=== PATIENT | male | born 1985 | race Caucasian/White ===

== ENCOUNTER 2017-10-18 09:25 | Emergency (ER) | payer OTHER ==
[~2017-10-18] VITALS: Ht 182.9 cm; Wt 104.3 kg
[~2017-10-18 09:25] MED LIST: ALPRAZOLAM ER1 MG; BACTRIM DS TAB1 EACH PO; NORCO 5-325 TA1 EACH PO; VYVANSE70 MG
[2017-10-18] MEDS ORDERED: AMOXICILLIN 50500 MG PO (09:50)
[2017-10-18] MEDS ORDERED: IBUPROFEN 600600 M1 PO (09:50)
[2017-10-18 09:57] VITALS: BP 127/89
[2017-10-19] MEDS ORDERED: ULTRAM 50MG TAB50 MG PO (03:20)
== END 2017-10-18 09:59 | disposition home or self-care (01) ==
LOC: ER 09:25
DX: K08.89 Other specified disorders of teeth and supporting structures (principal); Z90.49 Acquired absence of other specified parts of digestive tract; F17.210 Nicotine dependence, cigarettes, uncomplicated; Z88.1 Allergy status to other antibiotic agents

== ENCOUNTER 2017-10-19 02:53 | Emergency (ER) | payer OTHER ==
[~2017-10-19] VITALS: Ht 182.9 cm; Wt 104.3 kg
[~2017-10-19 02:53] MED LIST changes: +AMOXICILLIN 50500 MG PO; +IBUPROFEN 600600 M1 PO
[2017-10-19 02:59] VITALS: BP 154/104
[2017-10-19] MEDS ORDERED: ULTRAM 50MG TAB50 MG PO (03:20)
== END 2017-10-19 03:33 | disposition home or self-care (01) ==
LOC: ER 02:53
DX: K08.89 Other specified disorders of teeth and supporting structures (principal); F17.210 Nicotine dependence, cigarettes, uncomplicated; Z88.1 Allergy status to other antibiotic agents; Z90.49 Acquired absence of other specified parts of digestive tract

== ENCOUNTER 2017-11-25 10:51 | Emergency (ER) | payer OTHER ==
[~2017-11-25] VITALS: Ht 182.9 cm; Wt 99.8 kg
[~2017-11-25 10:51] MED LIST changes: +ULTRAM 50MG TAB50 MG PO
[2017-11-25 11:38] LABS: ABSOLUTE NEUTROPHILS 6.1 thou/uL (1.4-8.2); BASOPHILS 0.8 % (0.0-2.0); EOSINOPHILS 5.4 % (0.0-3.0); HEMATOCRIT 43.9 % (42.0-52.0); HEMOGLOBIN 15.3 gm/dL (14.0-18.0); MCH 30.8 pg (26.0-34.0); MCHC 34.9 g/dL (28.0-37.0); MONOCYTES 7.5 % (1.0-8.0); PLATELET COUNT 241 thou/uL (150-400); POLYS 74.3 % (36.0-66.0); RBC 4.98 mil/uL (4.50-6.00); RDW 13.5 % (10.5-14.5); WBC 8.2 thou/uL (4.0-11.0)
[2017-11-25 11:47] LABS: CALCIUM 8.9 mg/dL (8.5-10.1); POTASSIUM 4.4 mmol/L (3.5-5.1)
[2017-11-25 11:50] LABS: URINE BILIRUBIN NEGATIVE (Negative); URINE BLOOD NEGATIVE (Negative); URINE CLARITY CLEAR; URINE COLOR YELLOW; URINE GLUCOSE-RANDOM* NEGATIVE (Negative); URINE KETONES NEGATIVE (Negative); URINE LEUKOCYTES-REFLEX NEGATIVE (Negative); URINE NITRITE-REFLEX NEGATIVE (Negative); URINE PROTEIN (DIPSTICK) NEGATIVE (Negative); URINE SPECIFIC GRAVITY 1.025 (1.005-1.035); URINE UROBILINOGEN 0.2 E.U./dl (0.2-1.0)
[2017-11-25 12:39] VITALS: BP 120/74
== END 2017-11-25 12:40 | disposition home or self-care (01) ==
LOC: ER 10:51
PROVIDERS: Physician Assistant
DX: E86.9 Volume depletion, unspecified (principal); M54.9 Dorsalgia, unspecified; R53.81 Other malaise; R00.0 Tachycardia, unspecified; F17.210 Nicotine dependence, cigarettes, uncomplicated; Z88.1 Allergy status to other antibiotic agents; Z88.8 Allergy status to other drugs, medicaments and biological substances; Z90.49 Acquired absence of other specified parts of digestive tract

== ENCOUNTER 2019-03-30 13:37 | Emergency (ER) | payer OTHER ==
[~2019-03-30] VITALS: Ht 182.9 cm; Wt 104.3 kg
[2019-03-30] MEDS ORDERED: AMOXICILLIN 50500 MG PO (15:27)
[2019-03-30 15:37] VITALS: BP 122/83
== END 2019-03-30 15:39 | disposition home or self-care (01) ==
LOC: ER 13:37
DX: J02.0 Streptococcal pharyngitis (principal); F17.210 Nicotine dependence, cigarettes, uncomplicated; Z90.49 Acquired absence of other specified parts of digestive tract; Z88.1 Allergy status to other antibiotic agents